=== PATIENT | female | born 1970 | race Hispanic/Latino ===

== ENCOUNTER 2017-07-15 18:09 | Emergency (ER) | payer MEDICAID ==
[2017-07-15] MEDS ORDERED: ACETAMINOPHEN EXTRA STRENGTH 500 MG TABLET ONE ×2 (18:45→18:49)
== END 2017-07-15 19:30 | disposition home or self-care (01) ==
LOC: EDH 18:09
DX: J09.X2 Influenza due to identified novel influenza A virus with other respiratory manifestations (principal); E11.9 Type 2 diabetes mellitus without complications; E78.5 Hyperlipidemia, unspecified; I10 Essential (primary) hypertension; Z88.6 Allergy status to analgesic agent; Z88.2 Allergy status to sulfonamides; Z79.4 Long term (current) use of insulin; Z88.7 Allergy status to serum and vaccine; Z91.041 Radiographic dye allergy status
CPT/HCPCS: 87804

== ENCOUNTER 2018-01-04 02:18 | Emergency (ER) | payer MEDICAID | END 2018-01-04 03:20 | disposition home or self-care (01) | LOC: EDH 02:18 | DX: E11.65 Type 2 diabetes mellitus with hyperglycemia (principal); I10 Essential (primary) hypertension; E11.9 Type 2 diabetes mellitus without complications; E78.5 Hyperlipidemia, unspecified; Z88.2 Allergy status to sulfonamides; Z88.6 Allergy status to analgesic agent; Z91.041 Radiographic dye allergy status; Z79.4 Long term (current) use of insulin | CPT/HCPCS: 82948; 99282 ==

== ENCOUNTER 2023-12-15 07:08 | Day surgery (SDC) | payer MEDICAID ==
[2023-12-09 13:18] LABS: BASOPHILS # (AUTO) 0.02 K/uL (0.00-0.20); BASOPHILS % (AUTO) 0.5 % (0.0-5.0); EOSINOPHILS # (AUTO) 0.03 K/uL (0.00-0.70); EOSINOPHILS % (AUTO) 0.8 % (0.0-8.0); HEMATOCRIT 35.9 % (36-48); IMMATURE GRANULOCYTE ABSOLUTE 0.01 K/uL (0-1); LYMPHOCYTES # (AUTO) 0.8 K/uL (1.0-4.8); LYMPHOCYTES % (AUTO) 22.3 % (21.0-51.0); MEAN CORPUSCULAR HEMOGLOBIN 21.2 pg (27.0-33.0); MEAN CORPUSCULAR HGB CONC 30.1 g/dL (32.0-36.0); MEAN CORPUSCULAR VOLUME 70.5 fL (79-99); MONOCYTES # (AUTO) 0.2 K/uL (0.1-1.0); MONOCYTES % (AUTO) 5.1 % (3.0-13.0); NEUTROPHILS # (AUTO) 2.6 K/uL (1.8-7.7); PLATELET COUNT (AUTO) 159 K/uL (130-400); RED BLOOD CELL COUNT(AUTO) 5.09 MIL/uL (4.00-5.50); RED CELL DISTRIBUTION WIDTH 15.4 % (11.0-15.5); WHITE BLOOD COUNT (AUTO) 3.7 K/uL (4.8-10.8)
[2023-12-09 13:25] VITALS: BP 135/64; PULSE 68; RESP 19
[2023-12-09 13:34] LABS: HCG,QUALITATIVE URINE NEGATIVE (NEGATIVE)
[2023-12-09 13:45] LABS: APPEARANCE,URINE CLEAR (CLEAR); BILIRUBIN,URINE NEGATIVE (NEGATIVE); COLOR,URINE YELLOW (YELLOW); GLUCOSE, URINE (UA) >=1000 mg/dL (NEGATIVE); KETONES,URINE NEGATIVE (NEGATIVE); LEUKOCYTE ESTERASE ,URINE NEGATIVE Leu/uL (NEGATIVE); NITRATE,URINE NEGATIVE (NEGATIVE); OCCULT BLOOD,URINE NEGATIVE (NEGATIVE); PH,URINE 5.5 (5.0-8.0); PROTEIN,URINE 20 mg/dL (NEGATIVE)
[2023-12-09 13:53] LABS: ADD UA MICROSCOPIC YES
[2023-12-09 14:11] LABS: BACTERIA,URINE RARE /HPF (None Seen); MUCUS,URINE RARE LPF (None Seen); SQUAMOUS EPITHELIAL CELL,UR FEW /HPF (0-2)
[2023-12-15] VITALS (18 sets, daily range): BP systolic 129–158; BP diastolic 59–83; PULSE 58–76; RESP 14–18
[~2023-12-15] VITALS: Ht 152.4 cm; Wt 46.8 kg
[~2023-12-15 07:08] MED LIST: AMLO2.5T4 PO; INSU100V51 SQ; OXYC10TA48 PO
[2023-12-15] MEDS ORDERED: LIDOCAINE PF 100MG/5ML (2%) SYRINGE 5ML ONE (07:46)
[2023-12-15] MEDS ORDERED: PROPOFOL 10 MG/ML 20ML VIAL IV ONE (07:46)
[2023-12-15] MEDS ORDERED: PHENYLEPHRINE HCL 10 MG/ML 1ML VIAL IV ONE (07:46)
[2023-12-15] MEDS ORDERED: GLYCOPYRROLATE 0.2 MG/ML 5 ML VIAL ONE (07:46)
[2023-12-15] MEDS ORDERED: FENTANYL CITRATE PF 50 MCG/1 ML 2ML VIAL ONE (07:47)
[2023-12-15] MEDS: CEFTRIAXONE 1G VIAL IVPB ONE ×2 (08:00→08:45)
[2023-12-15] MEDS: 0.9%NACL 1000ML 1,000 ML IV ONE (08:08)
[2023-12-15] MEDS: CEFTRIAXONE 1G VIAL ONE (08:08)
[2023-12-15] MEDS: BOTULINUM TOXIN TYPE A 100 UNITS/VIAL INJ SCH (08:08)
[2023-12-15] MEDS ORDERED: MIDAZOLAM HCL 1 MG/ML 2ML VIAL ONE (08:38)
[2023-12-15] MEDS ORDERED: ONDANSETRON 4MG INJ ONE (09:01)
== END 2023-12-15 11:30 | disposition home or self-care (01) ==
LOC: DAH 07:08
PROVIDERS: ATTEND Urology
DX: N39.46 Mixed incontinence (principal); I10 Essential (primary) hypertension; J45.909 Unspecified asthma, uncomplicated; K21.9 Gastro-esophageal reflux disease without esophagitis; E11.9 Type 2 diabetes mellitus without complications; Z79.899 Other long term (current) drug therapy; Z79.01 Long term (current) use of anticoagulants; Z90.49 Acquired absence of other specified parts of digestive tract; Z90.89 Acquired absence of other organs; Z98.890 Other specified postprocedural states; Z98.84 Bariatric surgery status
CPT/HCPCS: 36415; 81001; 81025; 82948; 85025; 87088; 93005; C1758; J0585; J0696; J2001; J2250; J2371; J2405; J2704; J3010; J3490; J7030; J7120; A4215; A4221; A4222; A4223; A4358; A4600; A4663; A6260